=== PATIENT | female | born 1940 | race Native Hawaiian/Other Pacific Islander ===

== ENCOUNTER 2017-09-06 03:58 | Emergency (ER) | payer SELFPAY ==
[~2017-09-06] VITALS: Ht 154.9 cm; Wt 50.0 kg
[~2017-09-06 03:58] MED LIST: CIPR500S2 PO; CIPR500T2 PO; LOMO PO; METR-1 PO; Z.0.NO CURRENT MEDS; ZOFR4TAB3 SL
[2017-09-06 04:05] VITALS: BP 170/103; PULSE 100; RESP 24; TEMP 97.9; O2SAT 100
[2017-09-06 04:33] VITALS: BP 114/77; PULSE 123; RESP 24; O2SAT 98
[2017-09-06 04:33] LABS: AUTOMATED NEUTROPHIL # 4.7 TH/MM3 (1.8-7.7); BASOPHIL # 0.1 TH/MM3 (0-0.2); BASOPHIL % 0.7 % (0.0-2.0); EOSINOPHIL # 0.4 TH/MM3 (0-0.4); EOSINOPHIL % 4.8 % (0.0-4.0); HEMATOCRIT 40.4 % (35.0-46.0); LYMPH % 23.9 % (9.0-44.0); LYMPHOCYTE # 1.8 TH/MM3 (1.0-4.8); MEAN CELL VOLUME 82.8 FL (80.0-100.0); MEAN CORPUSCULAR HEMOGLOBIN 26.6 PG (27.0-34.0); MEAN CORPUSCULAR HGB CONC 32.2 % (32.0-36.0); MEAN PLATELET VOLUME 7.8 FL (7.0-11.0); MONOCYTE # 0.6 TH/MM3 (0-0.9); NEUT % 62.6 % (16.0-70.0); PLATELET COUNT 387 TH/MM3 (150-450); RED BLOOD COUNT 4.88 MIL/MM3 (4.00-5.30); RED CELL DISTRIBUTION WIDTH 12.6 % (11.6-17.2); WHITE BLOOD COUNT 7.6 TH/MM3 (4.0-11.0)
--- NOTE | 2017-09-06 04:33 | PD ---
HPI Chief Complaint: Blood in stool Time Seen by Provider: 04:13 Travel History International Travel<30 days: No Contact w/Intl Traveler<30days: No Traveled to known affect area: No History of Present Illness HPI 76yo F with PMH of TBI baseline nonverbal was brought in by daughter because she had maroon color blood in stool today. Denies any fever, vomiting, diarrhea or changes in mental status. Unable to obtain further history. Pt was here in 2016 for colitis and daughter said it was similar. Pt has not had a colonoscopy. As per daughter, pt is very anxious when she is in a healthcare setting. PFSH Past Medical History Autoimmune Disease: No Cancer: No Cardiovascular Problems: No Chemotherapy: No Cerebrovascular Accident: No Diabetes: No Diminished Hearing: No Endocrine: No Gastrointestinal Disorders: Yes (CHRONIC ABD PAIN, BLOATING, CHRONIC VOMITTING. ) GERD: Yes Glaucoma: Yes Genitourinary: No Immune Disorder: No Musculoskeletal: No Neurologic: Yes (TBI) Psychiatric: No Reproductive: No Respiratory: No Migraines: No Radiation Therapy: No Seizures: No Sickle Cell Disease: No Thyroid Disease: No Menopausal: Yes Past Surgical History AICD: No Arteriovenous Shunt: No Insulin Pump: No Joint Replacement: No Social History Alcohol Use: No Tobacco Use: No Substance Use: No Allergies-Medications (Allergen,Severity, Reaction): Coded Allergies: penicillin G (Unverified Allergy, Mild, 09/06/17) Reported Meds & Prescriptions Reported Meds & Active Scripts Active Reported Theraflu Expressmax Cold Nt Lq (Diphenhydra/Phenyleph/Acetamin) 25 Mg-10 Mg-650 Mg/30 Ml Liquid Review of Systems ROS Limitations: Clinical Condition Physical Exam Narrative GENERAL: 76yo F anxious appearing, since she is in the hospital. SKIN: Focused skin assessment warm/dry. HEAD: Atraumatic. Normocephalic. EYES: Pupils equal and round. No scleral icterus. No injection or drainage. ENT: No nasal bleeding or discharge. Mucous membranes pink and moist. NECK: Trachea midline. No JVD. CARDIOVASCULAR: Regular rate and rhythm. No murmur appreciated. RESPIRATORY: No accessory muscle use. Clear to auscultation. Breath sounds equal bilaterally. GASTROINTESTINAL: Abdomen soft, non-tender, nondistended. No rebound tenderness or guarding. RECTAL: No external hemorrhoids. Yellow stool, hemaprompt negative. MUSCULOSKELETAL: No obvious deformities. No clubbing. No cyanosis. No edema. NEUROLOGICAL: Awake and alert. Makes incomprehensible noise which is normal for her. Moving all extremities. Data Data Last Documented VS Vital Signs Date Time Temp Pulse Resp B/P (MAP) Pulse Ox O2 Delivery O2 Flow Rate FiO2 09/06/17 04:48 96 20 100 09/06/17 04:05 97.9 Orders Orders Complete Blood Count With Diff (09/06/17 04:26) Ed Discharge Order (09/06/17 04:45) Labs Laboratory Tests Test 09/06/17 04:30 White Blood Count 7.6 TH/MM3 Red Blood Count 4.88 MIL/MM3 Hemoglobin 13.0 GM/DL Hematocrit 40.4 % Mean Corpuscular Volume 82.8 FL Mean Corpuscular Hemoglobin 26.6 PG Mean Corpuscular Hemoglobin Concent 32.2 % Red Cell Distribution Width 12.6 % Platelet Count 387 TH/MM3 Mean Platelet Volume 7.8 FL Neutrophils (%) (Auto) 62.6 % Lymphocytes (%) (Auto) 23.9 % Monocytes (%) (Auto) 8.0 % Eosinophils (%) (Auto) 4.8 % Basophils (%) (Auto) 0.7 % Neutrophils # (Auto) 4.7 TH/MM3 Lymphocytes # (Auto) 1.8 TH/MM3 Monocytes # (Auto) 0.6 TH/MM3 Eosinophils # (Auto) 0.4 TH/MM3 Basophils # (Auto) 0.1 TH/MM3 CBC Comment DIFF FINAL Differential Comment MDM Medical Decision Making Medical Screen Exam Complete: Yes Emergency Medical Condition: Yes Interpretation(s) Vital Signs Date Time Temp Pulse Resp B/P (MAP) Pulse Ox O2 Delivery O2 Flow Rate FiO2 09/06/17 04:48 96 20 100 09/06/17 04:44 20 09/06/17 04:33 123 24 114/77 (89) 98 09/06/17 04:05 97.9 100 24 170/103 (125) 100 Differential Diagnosis Malignancy vs. early colitis vs. polyps vs. hemorrhoid vs. AV malformation Narrative Course 76yo F with PMH of TBI nonverbal brought here for blood in stool today. Pt is nonverbal. Abdomen is soft, nontender. Denies any fever. Hemaprompt negative. Will make sure H/H is stable. Pt is afebrile here. HR fluctuates because pt is agitated and moving when the HR was documented as 123bpm. HR was in the 90s when she was calm. CBC reviewed and showed no leukocytosis. H/H normal at 13/40.4. Pt is at her baseline mental status with no fever, vomiting or diarrhea. Will have daughter bring patient to photographic developer and printer for further testing for blood in stool since pt has not had a colonoscopy and she is 76yo. Return precautions given. HemaPrompt Point of Care Internal Pos. & Neg. Controls: Passed Fecal Specimen Occult Blood: Negative Diagnosis Primary Impression: Blood in stool Referrals: Yinka Mendoza MD call for appointment Patient Instructions: General Instructions Departure Forms: Tests/Procedures Additional Instructions: Please follow up with photographic developer and printer for further evaluation even though the hemaprompt is negative here today. Pt may have had intermittent blood in stool as described. Please return to the ED if patient have fever, vomiting, abdominal pain, or any other concerning symptoms. Med/Other Pt SpecificInfo: No Change to Meds Disposition: 01 DISCHARGE HOME Condition: Stable PeresJune paul Sep 06, 2017 04:33
[2017-09-06] MEDS ORDERED: [UNRECOGNIZED DRUG - CODE] (04:43)
== END 2017-09-06 05:03 | disposition home or self-care (01) ==
LOC: PHED 03:58
DX: K92.1 Melena (principal); K21.9 Gastro-esophageal reflux disease without esophagitis; H40.9 Unspecified glaucoma
CPT/HCPCS: 85025; 99283